=== PATIENT | female | born 1945 | race Caucasian/White ===

== ENCOUNTER 2024-11-23 06:23 | Day surgery (SDC) | payer MEDICARE, SELFPAY ==
[2024-11-17 13:22] LABS: Hematocrit 42.5 % (37.0-47.0); Hemoglobin 14.9 g/dL (12.0-16.0); Mean Corp Hgb Conc. 35.1 g/dL (33.0-37.0); Mean Corpuscular Hgb 35.1 pg (27.0-31.0); Mean Corpuscular Volume 100.2 fL (81.0-99.0); Mean Platelet Volume 8.6 fL (7.4-10.4); Platelet Count 220 10^3/uL (130-400); Red Blood Cell Count 4.24 10^6/uL (4.20-5.40); Red Cell Dist. Width 12.6 % (11.5-14.5); White Blood Cell Count 6.3 10^3/uL (4.8-10.8)
[2024-11-17 13:47] VITALS: BMI 27.3
[2024-11-17 14:02] LABS: Blood Urea Nitrogen 11 mg/dl (7-17); Calcium 10.4 mg/dl (8.4-10.2); Carbon Dioxide 22 mmol/L (22-30); Chloride 108 mmol/L (98-107); Estimated Creatinine Clearance 60 ml/min; Glucose 115 mg/dl (70-99); Potassium 4.3 mmol/L (3.5-5.1); Sodium 141 mmol/L (135-145); eGFR > 60.00
--- NOTE | 2024-11-18 15:27 | PTCARENOTE ---
Patients 11/17 ECG abnormal- reviewed by Dr. Gipson- no additional interventions required
[2024-11-23] VITALS (9 sets, daily range): BP systolic 109–150; BP diastolic 62–93; BMI 27.3
[2024-11-23] MEDS: Pyridium 200 MG PO (11:00)
[2024-11-23] MEDS: NORMOSOL-R/PLASMALYTE-A 1000 IV (11:00)
[2024-11-23] MEDS: HEPARIN 5000 UNITS SC (11:07)
== END 2024-11-23 15:30 | disposition home or self-care (01) ==
LOC: SDS 06:23
PROVIDERS: ATTENDING PHYSICIAN Obstetrics & Gynecology; FAMILY PHYSICIAN Family Medicine
DX: N81.3 Complete uterovaginal prolapse (principal); N39.3 Stress incontinence (female) (male)
CPT/HCPCS: 57288; 57120; 57250; 36415; 80048; 85027; 86850; 86900; 86901; 93005; C1713; C1771